=== PATIENT | female | born 1980 | race Caucasian/White ===

== ENCOUNTER 2016-11-29 19:14 | Emergency (ER) | payer OTHER ==
[2016-11-29] MEDS ORDERED: ONDANSETRON HCL INJ/PF 4 MG/2 ML SDV IV ONE (19:55)
[2016-11-29] MEDS ORDERED: NORMAL SALINE 1000 ML 1,000 ML IV ONE (19:55)
[2016-11-29] MEDS ORDERED: KETOROLAC TROMETHAMINE INJ/PF 30 MG/1 ML SDV IV ONE (20:05)
--- NOTE | 2016-11-29 20:06 | ER Document Report ---
ED General - General Chief Complaint: Abdominal Pain Stated Complaint: ABDOMINAL PAIN Time Seen by Provider: 11/29/16 19:54 Notes: Patient is a 36-year-old female without past medical history who presents with 10 hours of left flank pain radiating to the left lower abdomen with associated nausea and vomiting. Describes the pain as a severe, constant, stabbing pain. Nothing improves or worsens the pain. She has no history of similar symptoms in the past. She has not seen a primary care doctor regarding today's concerns. Denies any vaginal bleeding, vaginal discharge, dysuria, diarrhea, chest pain or shortness of breath. No prior history of kidney stones. Denies any fever or constitutional symptoms. - Related Data Allergies/Adverse Reactions: sulfamethoxazole [From ] Adverse Reaction (Verified 11/29/16 19:22) rash trimethoprim [From ] Adverse Reaction (Verified 11/29/16 19:22) rash Past Medical History - General Information source: Patient - Social History Smoking Status: Never Smoker Frequency of alcohol use: None Drug Abuse: None Lives with: Spouse/Significant other Family History: Reviewed & Not Pertinent Renal/ Medical History: Denies: Hx Peritoneal Dialysis Review of Systems - Review of Systems Notes: Constitutional: Negative for fever. HENT: Negative for sore throat. Eyes: Negative for visual changes. Cardiovascular: Negative for chest pain. Respiratory: Negative for shortness of breath. Gastrointestinal: Positive for abdominal pain and vomiting Genitourinary: Negative for dysuria. Musculoskeletal: Negative for back pain. Skin: Negative for rash. Neurological: Negative for headaches, weakness or numbness. 10 point ROS negative except as marked above and in HPI. Physical Exam - Vital signs Vitals: Pulse 90 11/29/16 20:28 Interpretation: Tachycardic Notes: PHYSICAL EXAMINATION: GENERAL: Appears to be in significant pain HEAD: Atraumatic, normocephalic. EYES: Pupils equal round and reactive to light, extraocular movements intact, sclera anicteric, conjunctiva are normal. ENT: nares patent, oropharynx clear without exudates. Moderately dry mucous membranes. NECK: Normal range of motion, supple without lymphadenopathy LUNGS: Breath sounds clear to auscultation bilaterally and equal. No wheezes rales or rhonchi. HEART: Regular tachycardia without murmurs ABDOMEN: Soft, mild left lower quadrant abdominal tenderness to palpation otherwise no focal anterior abdominal pain, normoactive bowel sounds. No guarding, no rebound. No masses appreciated. Exquisite left CVA tenderness to palpation EXTREMITIES: Normal range of motion, no pitting or edema. No cyanosis. NEUROLOGICAL: No focal neurological deficits. Moves all extremities spontaneously and on command. PSYCH: Normal mood, normal affect. SKIN: Warm, Dry, normal turgor, no rashes or lesions noted. Course - Re-evaluation Re-evalutation: 11/29/16 20:05 Patient presents with progressively worsening left lower abdominal pain with associated vomiting. On initial assessment patient appears visibly uncomfortable, pale, somewhat diaphoretic. Her abdomen is soft, nondistended no areas of focal rebound or guarding but she is focally tender to the left lower quadrant. However on examination she is most tender to the left CVA with direct palpation. No pain in the adnexa or over the uterus. She does appear clinically dehydrated. Differential diagnosis at this time includes nephrolithiasis, pyelonephritis, related pathology, or acute diverticulitis. Will begin with basic laboratories, urinalysis, symptom control and reassess. 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 Will contact [facility] for evaluation 11/30/16 00:28 I discussed this case after a 2 hour delay in returning of the phone call with Dr. Thompson the urologist on-call at [facility]. He was agreeable to transfer. Patient's pain remains controlled at this time using IV morphine. She has received IV ceftriaxone, IV fluids. Her tachycardia has resolved. 11/30/16 01:50 Transport has arrived for patient transfer. She is stable at this time for transport. - Vital Signs Vital signs: Temp Pulse Resp BP Pulse Ox 98.6 F 98 113/78 96 11/30/16 01:14 11/30/16 00:01 11/30/16 01:00 11/30/16 01:01 - Laboratory Result Diagrams: 11/29/16 20:14 11/29/16 20:14 Laboratory results interpreted by me: 11/29/16 11/29/16 11/29/16 20:14 20:14 20:28 WBC 13.1 H Seg Neuts % (Manual) 96 H Band Neutrophils % 1 L Lymphocytes % (Manual) 2 L Monocytes % (Manual) 1 L Abs Neuts (Manual) 12.7 H Abs Lymphs (Manual) 0.3 L Carbon Dioxide 21 L Glucose 118 H Urine Protein 100 H Urine Blood MODERATE H Urine Nitrite POSITIVE H Ur Leukocyte Esterase LARGE H - Diagnostic Test Radiology reviewed: Reports reviewed Discharge - Discharge Clinical Impression: Pyelonephritis Urolithiasis Qualifiers: Urinary calculus location: kidney and ureter Qualified Code(s): N20.2 - Calculus of kidney with calculus of ureter Condition: Fair Disposition: [facility]
[2016-11-29] MEDS: MORPHINE SULFATE 10 MG/ML INJ IV PRN ×3 (20:19→23:54)
[2016-11-29 20:24] LABS: HEMATOCRIT 38.3 % (36.0-47.0); HEMOGLOBIN 13.3 g/dL (12.0-15.5); HGB HCT DIFFERENCE 1.6; MEAN CORPUSCULAR HGB CONC 34.8 g/dL (32.0-36.0); MEAN CORPUSCULAR VOLUME 89 fl (80-97); RED BLOOD COUNT 4.31 10^6/uL (3.72-5.28); RED CELL DISTRIBUTION WIDTH 13.1 % (11.5-14.0); WHITE BLOOD COUNT 13.1 10^3/uL (4.0-10.5)
[2016-11-29 20:39] LABS: ALANINE AMINOTRANSFERASE 29 U/L (9-52); ALBUMIN 4.2 g/dL (3.5-5.0); ALKALINE PHOSPHATASE 59 U/L (38-126); ANION GAP 12 (5-19); ASPARTATE AMINO TRANSFERASE 29 U/L (14-36); BILIRUBIN,DIRECT 0.4 mg/dL (0.0-0.4); BILIRUBIN,TOTAL 1.2 mg/dL (0.2-1.3); BLOOD UREA NITROGEN 17 mg/dL (7-20); CALCIUM 9.6 mg/dL (8.4-10.2); CARBON DIOXIDE 21 mmol/L (22-30); CHLORIDE 106 mmol/L (98-107); CREATININE RESULT 1.04 mg/dL (0.52-1.25); GLUCOSE 118 mg/dL (75-110); LIPASE 136.6 U/L (23-300); POTASSIUM 3.9 mmol/L (3.6-5.0); SODIUM 138.8 mmol/L (137-145); TOTAL PROTEIN 7.2 g/dL (6.3-8.2)
[2016-11-29 20:42] LABS: BAND NEUTROPHILS % (MANUAL) 1 % (3-5); BASOPHILS % (MANUAL) 0 % (0-2); EOSINOPHILS % (MANUAL) 0 % (0-6); LYMPHOCYTES % (MANUAL) 2 % (13-45); TOTAL CELLS COUNTED 100; TOXIC GRANULATION SLIGHT; TOXIC VACUOLATION PRESENT
[2016-11-29 20:45] LABS: OVALOCYTES SLIGHT; POIKILOCYTOSIS SLIGHT
[2016-11-29 21:06] LABS: APPEARANCE,URINE CLOUDY; BILIRUBIN,URINE NEGATIVE (NEGATIVE); GLUCOSE, URINE NEGATIVE (NEGATIVE); KETONES,URINE NEGATIVE (NEGATIVE); LEUKOCYTE ESTERASE,URINE LARGE (NEGATIVE); NITRITE,URINE POSITIVE (NEGATIVE); PROTEIN,URINE 100 mg/dL (NEGATIVE); URINE SPECIFIC GRAVITY 1.011; UROBILINOGEN,URINE NEGATIVE mg/dL (<2.0)
[2016-11-29] MEDS ORDERED: CEFTRIAXONE 1 GM/D5W RTU 50 ML IV ONE (21:16)
--- NOTE | 2016-11-29 21:54 | RADIOLOGY REPORT (SQ) ---
EXAM DESCRIPTION: CT LTD RENAL STONE PROTOCOL ON COMPLETED DATE/TIME: 11/29/2016 9:29 pm REASON FOR STUDY: eval possible infected stone COMPARISON: None. TECHNIQUE: CT scan of the abdomen and pelvis performed without intravenous or oral contrast. Images reviewed with lung, soft tissue, and bone windows. Reconstructed coronal and sagittal MPR images revi ewed. All images stored on PACS. All CT scanners at this facility use dose modulation, iterative reconstruction, and/or weight based d osing when appropriate to reduce radiation dose to as low as reasonably achievable (ALARA). [facility]: Dose Right [facility]: CareDose [facility]: Dose Right [facility]: Teradose 4D [facility]: Smart [employer] RADIATION DOSE: Up-to-date CT equipment and radiation dose reduction techniques were employed. CTDIv ol: 4.8 mGy. DLP: 235 mGy-cm.mGy. LIMITATIONS: None. FINDINGS: LOWER CHEST: Incidental note is made of extra thoracic/subcutaneous gas, only partially im aged. The lung bases are clear and evenly aerated. No pleural air or pleural effusion. NON-CONTRASTED LIVER, SPLEEN, ADRENALS: Evaluation limited by lack of IV contrast. No identified sign ificant masses. PANCREAS: No masses. No peripancreatic inflammatory changes. GALLBLADDER: No identified stones by CT criteria. No inflammatory changes to suggest cholecystitis. RIGHT KIDNEY AND URETER: No suspicious masses. Assessment limited by lack of IV contrast. Increased density of the pyramids and nonobstructing nephroliths are present. No hydronephrosis or hydrouret er. LEFT KIDNEY AND URETER: No suspicious masses. Assessment limited by lack of IV contrast. Increased density of the pyramids. A large calculus extends from the inferior pole collecting system into the renal pelvis, partially obstructing the proximal ureter. Resultant hydronephrosis. AORTA AND RETROPERITONEUM: No aneurysm. No retroperitoneal masses or adenopathy. BOWEL AND PERITONEAL CAVITY: No obvious masses or inflammatory changes. No free fluid. APPENDIX: Surgically absent. PELVIS, BLADDER, AND ABDOMINAL WALL:No abnormal masses. No free fluid. Bladder normal. BONES: No significant findings. OTHER: No other significant finding. IMPRESSION: 1. Partially obstructing left-sided urolithiasis on the basis of a large calcification extending from the inferior pole collecting system into the renal pelvis and proximal ureter with res ultant hydronephrosis. Increased density of the renal pyramids bilaterally. Nonobstructing right-si ded nephrolithiasis. 2. Extrathoracic subcutaneous gas involving the lower anterior thorax, partially imaged. Recommend correlation for recent instrumentation such as breast augmentation. TECHNICAL DOCUMENTATION: JOB ID: [id number] Quality ID # [id number]: Final reports with documentation of one or more dose reduction techniques (e.g., Au tomated exposure control, adjustment of the mA and/or kV according to patient size, use of iterative reconstruction technique) 2010 [employer]- All Rights Reserved
[2016-11-30] MEDS ORDERED: NORMAL SALINE 1000 ML 1,000 ML IV ONE (00:25)
[2016-11-30 01:31] VITALS: BP 113/78
== END 2016-11-30 01:49 | disposition short-term general hospital (02) ==
LOC: ER 19:14
DX: N12 Tubulo-interstitial nephritis, not specified as acute or chronic (principal); N20.2 Calculus of kidney with calculus of ureter; R10.32 Left lower quadrant pain; R11.2 Nausea with vomiting, unspecified
CPT/HCPCS: 96376; 99285; 96361; 96375; 96365; 36415; 83690; 84703; 85025; 80053; 81001; 76380; J1885; J2270; J2405; J7030; J0696